=== PATIENT | female | born 1960 | race Caucasian/White ===

== ENCOUNTER 2024-05-04 14:35 | Inpatient (IN) | payer OTHER ==
[~2024-05-04] VITALS: Ht 157.5 cm; Wt 58.3 kg
[~2024-05-04 14:35] MED LIST: GLYB-200 PO; LEVO750T2 PO; METF-1274 PO
[2024-05-04 14:46] VITALS: BP 139/54; PULSE 99; RESP 20; TEMP 100.3; O2SAT 99
[2024-05-04 16:04] LABS: BASOPHILS # (AUTO) 0.1 K/uL (0.00-0.22); BASOPHILS % (AUTO) 0.5 % (0.0-2.0); EOSINOPHILS % (AUTO) 0.2 % (0.0-4.0); HEMATOCRIT 36.1 % (36-48); HEMOGLOBIN 11.9 g/dL (12.0-16.0); LYMPHOCYTES # (AUTO) 1.3 K/uL (2.5-16.5); LYMPHOCYTES % (AUTO) 8.4 % (20.5-51.1); MEAN CORPUSCULAR HEMOGLOBIN 29 pg (27-31); MEAN CORPUSCULAR HGB CONC 33 g/dL (33-37); MEAN CORPUSCULAR VOLUME 88.6 fL (80-94); MONOCYTES # (AUTO) 0.9 K/uL (0.8-1.0); NEUTROPHILS # (AUTO) 13.5 K/uL (1.8-7.7); NEUTROPHILS % (AUTO) 84.9 % (42.2-75.2); PLATELET COUNT (AUTO) 276 K/uL (140-450); RED BLOOD CELL COUNT(AUTO) 4.08 MIL/uL (4.20-5.40); RED CELL DISTRIBUTION WIDTH 13.4 % (11.6-13.7); WHITE BLOOD COUNT (AUTO) 15.9 K/uL (4.8-10.8)
[2024-05-04 16:15] LABS: ANION GAP 13.6 (8-16); CALCIUM 9.4 mg/dL (8.5-10.1); CREATININE 0.9 mg/dL (0.6-1.3); POTASSIUM 3.6 mmol/L (3.5-5.1)
[2024-05-04 16:24] LABS: LACTIC ACID 1.2 mmol/L (0.4-2.0)
[2024-05-04] MEDS ORDERED: VANCOMYCIN PER PHARMACY MC PRN (17:05)
[2024-05-04] MEDS ORDERED: DEXTROSE 50% 50 ML SYR IVP PRN (17:05)
[2024-05-04] MEDS ORDERED: PIPERACILLIN/TAZOBACTAM 3.375 GM VIAL IV ONE (17:09)
[2024-05-04] MEDS ORDERED: VANCOMYCIN 1,000 MG VIAL ONE (17:09)
[2024-05-04] MEDS: PIPERACILLIN/TAZOBACTAM 3.375 GM in DEXTROSE 5% 50 ML IV ONE (17:23)
[2024-05-04] MEDS: KETOROLAC 30 MG/ML VIAL IVP ONE (17:25)
[2024-05-04] MEDS: VANCOMYCIN 1,000 MG in DEXTROSE 5% 250 ML IV ONE (17:42)
[2024-05-04 19:56] VITALS: PULSE 78; RESP 19; O2SAT 100
[2024-05-04 20:00] VITALS: BP 142/59; PULSE 78; RESP 18; TEMP 97.1; O2SAT 100
[2024-05-04] MEDS: BLOOD GLUCOSE MONITORING 1 DEV DEV FS SCH (21:15)
[2024-05-04] MEDS: INSULIN LISPRO SLIDING SCALE 100 UNITS/ML VIAL SUBQ PRN (21:19)
[2024-05-05 04:00] VITALS: BP 116/48; PULSE 87; RESP 18; TEMP 98.9; O2SAT 98
[2024-05-05] MEDS: PIPERACILLIN/TAZOBACTAM 3.375 GM VIAL IV ONE (05:23)
[2024-05-05] MEDS: PIPERACILLIN/TAZOBACTAM 3.375 GM in DEXTROSE 5% 50 ML IV SCH (06:36)
[2024-05-05 07:14] LABS: BASOPHILS % (AUTO) 0.3 % (0.0-2.0); EOSINOPHILS % (AUTO) 0.3 % (0.0-4.0); HEMATOCRIT 32.5 % (36-48); HEMOGLOBIN 10.9 g/dL (12.0-16.0); LYMPHOCYTES # (AUTO) 1.3 K/uL (2.5-16.5); LYMPHOCYTES % (AUTO) 11.8 % (20.5-51.1); MEAN CORPUSCULAR HEMOGLOBIN 30 pg (27-31); MEAN CORPUSCULAR HGB CONC 34 g/dL (33-37); MEAN CORPUSCULAR VOLUME 88.2 fL (80-94); MONOCYTES % (AUTO) 8.7 % (1.7-9.3); NEUTROPHILS # (AUTO) 8.9 K/uL (1.8-7.7); NEUTROPHILS % (AUTO) 78.9 % (42.2-75.2); PLATELET COUNT (AUTO) 237 K/uL (140-450); RED BLOOD CELL COUNT(AUTO) 3.68 MIL/uL (4.20-5.40); RED CELL DISTRIBUTION WIDTH 13.1 % (11.6-13.7); WHITE BLOOD COUNT (AUTO) 11.3 K/uL (4.8-10.8)
[2024-05-05 08:00] VITALS: BP 116/56; PULSE 78; PULSE 86; RESP 18; RESP 19; TEMP 97.7; O2SAT 100
[2024-05-05 08:10] LABS: ALBUMIN 2.7 g/dL (3.4-5.0); CALCIUM 8.2 mg/dL (8.5-10.1); CARBON DIOXIDE 25.7 mmol/L (21-32); CREATININE 0.9 mg/dL (0.6-1.3); MAGNESIUM 1.6 mg/dL (1.8-2.4); POTASSIUM 3.7 mmol/L (3.5-5.1); TOTAL BILIRUBIN 0.9 mg/dL (0.0-1.0); TOTAL PROTEIN, SERUM 6.9 g/dL (6.4-8.2)
[2024-05-05] MEDS: glyBURIDE 5 MG TAB PO SCH (09:46)
[2024-05-05] MEDS: MEDS-TO-BEDS MC SCH (09:46)
[2024-05-05] MEDS: ASPIRIN 81 MG TAB.CHEW PO SCH (09:46)
[2024-05-05] MEDS: MAGNESIUM OXIDE 400 MG TAB PO PRN (09:46)
[2024-05-05] MEDS: ENOXAPARIN 40 MG/0.4 ML SYR SUBQ SCH (09:48)
[2024-05-05] MEDS: GAUZE TP SCH (13:00)
[2024-05-05 16:00] VITALS: BP 131/53; PULSE 93; RESP 18; TEMP 98.9; O2SAT 98
[2024-05-05] MEDS: ACETAMINOPHEN 325 MG TAB PO PRN (18:34)
[2024-05-05] MEDS: VANCOMYCIN 1,000 MG in DEXTROSE 5% 250 ML IV SCH (18:35)
[2024-05-05] MEDS: HYDROcodone/APAP 5/325 MG 1 TAB TAB PO PRN (19:38)
[2024-05-05 20:00] VITALS: BP 121/58; PULSE 71; PULSE 91; RESP 18; TEMP 97.5; O2SAT 94; O2SAT 98
[2024-05-06 04:00] VITALS: BP 112/48; PULSE 65; RESP 18; TEMP 96.8; O2SAT 98
[2024-05-06 06:49] LABS: BASOPHILS % (AUTO) 0.3 % (0.0-2.0); EOSINOPHILS # (AUTO) 0.1 K/uL (0-0.4); EOSINOPHILS % (AUTO) 1.3 % (0.0-4.0); HEMATOCRIT 33.3 % (36-48); HEMOGLOBIN 11.1 g/dL (12.0-16.0); LYMPHOCYTES # (AUTO) 1.6 K/uL (2.5-16.5); LYMPHOCYTES % (AUTO) 17.7 % (20.5-51.1); MEAN CORPUSCULAR HEMOGLOBIN 30 pg (27-31); MEAN CORPUSCULAR HGB CONC 34 g/dL (33-37); MEAN CORPUSCULAR VOLUME 88.8 fL (80-94); MONOCYTES # (AUTO) 0.9 K/uL (0.8-1.0); MONOCYTES % (AUTO) 9.3 % (1.7-9.3); NEUTROPHILS # (AUTO) 6.5 K/uL (1.8-7.7); NEUTROPHILS % (AUTO) 71.4 % (42.2-75.2); PLATELET COUNT (AUTO) 258 K/uL (140-450); RED BLOOD CELL COUNT(AUTO) 3.75 MIL/uL (4.20-5.40); RED CELL DISTRIBUTION WIDTH 13.2 % (11.6-13.7); WHITE BLOOD COUNT (AUTO) 9.1 K/uL (4.8-10.8)
[2024-05-06 07:22] LABS: ANION GAP 10.4 (8-16); CALCIUM 8.2 mg/dL (8.5-10.1); CARBON DIOXIDE 27.5 mmol/L (21-32); POTASSIUM 3.9 mmol/L (3.5-5.1)
[2024-05-06 08:00] VITALS: BP 115/49; PULSE 74; PULSE 89; RESP 18; TEMP 98.3; O2SAT 97; O2SAT 99
[2024-05-06 16:00] VITALS: BP 120/53; PULSE 84; RESP 18; TEMP 99; O2SAT 98
[2024-05-06 20:00] VITALS: BP_SYST 116; BP_SYST 120; BP_DIAS 53; BP_DIAS 60; PULSE 78; PULSE 84; RESP 16; RESP 18; TEMP 98.7; O2SAT 98
[2024-05-07 04:00] VITALS: BP 113/67; PULSE 82; RESP 16; TEMP 98.7; O2SAT 97
[2024-05-07 06:47] LABS: BASOPHILS % (AUTO) 0.2 % (0.0-2.0); EOSINOPHILS # (AUTO) 0.1 K/uL (0-0.4); EOSINOPHILS % (AUTO) 0.5 % (0.0-4.0); HEMOGLOBIN 10.5 g/dL (12.0-16.0); LYMPHOCYTES % (AUTO) 10.3 % (20.5-51.1); MEAN CORPUSCULAR HEMOGLOBIN 30 pg (27-31); MEAN CORPUSCULAR HGB CONC 34 g/dL (33-37); MEAN CORPUSCULAR VOLUME 87.9 fL (80-94); MONOCYTES # (AUTO) 0.8 K/uL (0.8-1.0); MONOCYTES % (AUTO) 8.2 % (1.7-9.3); NEUTROPHILS # (AUTO) 7.6 K/uL (1.8-7.7); NEUTROPHILS % (AUTO) 80.8 % (42.2-75.2); PLATELET COUNT (AUTO) 264 K/uL (140-450); RED BLOOD CELL COUNT(AUTO) 3.52 MIL/uL (4.20-5.40); RED CELL DISTRIBUTION WIDTH 13.3 % (11.6-13.7); WHITE BLOOD COUNT (AUTO) 9.4 K/uL (4.8-10.8)
[2024-05-07 07:07] LABS: CALCIUM 8.2 mg/dL (8.5-10.1); CARBON DIOXIDE 25.6 mmol/L (21-32); CREATININE 0.9 mg/dL (0.6-1.3); POTASSIUM 3.6 mmol/L (3.5-5.1)
[2024-05-07 08:00] VITALS: PULSE 78; RESP 16; O2SAT 98
[2024-05-07] MEDS: VANCOMYCIN HCL 750 MG in DEXTROSE 5% 250 ML IV SCH (12:30)
[2024-05-07 16:00] VITALS: BP 115/62; PULSE 89; RESP 18; TEMP 98.6; O2SAT 99
[2024-05-07 20:00] VITALS: BP 121/50; PULSE 16; PULSE 86; RESP 16; RESP 18; TEMP 97.3; O2SAT 97
[2024-05-07] MEDS: MORPHINE SULFATE 2 MG/ML SYR IVP PRN (20:36)
[2024-05-07] MEDS: ONDANSETRON 4 MG/2 ML VIAL IVP PRN (21:38)
[2024-05-08 07:26] LABS: BASOPHILS % (AUTO) 0.6 % (0.0-2.0); EOSINOPHILS # (AUTO) 0.1 K/uL (0-0.4); EOSINOPHILS % (AUTO) 1.2 % (0.0-4.0); HEMOGLOBIN 10.4 g/dL (12.0-16.0); LYMPHOCYTES # (AUTO) 1.4 K/uL (2.5-16.5); LYMPHOCYTES % (AUTO) 17.1 % (20.5-51.1); MEAN CORPUSCULAR HEMOGLOBIN 30 pg (27-31); MEAN CORPUSCULAR HGB CONC 34 g/dL (33-37); MEAN CORPUSCULAR VOLUME 88.1 fL (80-94); MONOCYTES # (AUTO) 0.9 K/uL (0.8-1.0); MONOCYTES % (AUTO) 10.2 % (1.7-9.3); NEUTROPHILS # (AUTO) 5.9 K/uL (1.8-7.7); NEUTROPHILS % (AUTO) 70.9 % (42.2-75.2); PLATELET COUNT (AUTO) 265 K/uL (140-450); RED BLOOD CELL COUNT(AUTO) 3.52 MIL/uL (4.20-5.40); WHITE BLOOD COUNT (AUTO) 8.3 K/uL (4.8-10.8)
[2024-05-08 07:58] LABS: ANION GAP 12.8 (8-16); CALCIUM 8.2 mg/dL (8.5-10.1); CARBON DIOXIDE 28.2 mmol/L (21-32)
[2024-05-08 08:00] VITALS: BP 134/53; PULSE 75; RESP 18; TEMP 97.5; O2SAT 96
[2024-05-08] MEDS ORDERED: MEPERIDINE 25 MG/ML SYR IVP PRN (11:50)
[2024-05-08] MEDS ORDERED: BLOOD GLUCOSE MONITORING 1 DEV DEV FS SCH (11:50)
[2024-05-08] MEDS ORDERED: HYDROmorphone 1 MG/ML AMP IVP PRN (11:50)
[2024-05-08] MEDS: LACTATED RINGERS 1,000 ML IV SCH (11:50)
[2024-05-08] MEDS ORDERED: ACETAMINOPHEN 100 ML IV SCH (11:50)
[2024-05-08] MEDS ORDERED: ONDANSETRON 4 MG/2 ML VIAL IVP PRN (11:50)
[2024-05-08] MEDS: METOCLOPRAMIDE 10 MG/2 ML INJ VIAL ONE (12:20)
[2024-05-08] MEDS: DEXAMETHASONE 4 MG/ML VIAL ONE (12:20)
[2024-05-08] MEDS: ONDANSETRON 4 MG/2 ML VIAL ONE (12:20)
[2024-05-08] MEDS ORDERED: SEVOFLURANE 250 ML BTL INH ONE (12:32)
[2024-05-08] MEDS: BUPIVACAINE-MPF 0.25% 30 ML VIAL INJ ONE (12:33)
[2024-05-08] MEDS: LIDOCAINE/EPI 1% 1:100000 20 ML VIAL INJ ONE (12:33)
[2024-05-08] MEDS: LIDOCAINE 1% 500 MG/50 ML VIAL ONE (12:33)
[2024-05-08] MEDS: fentaNYL citrate 0.05 MG/ML VIAL ONE (13:07)
[2024-05-08] MEDS: MIDAZOLAM 2 MG/2 ML VIAL ONE (13:07)
[2024-05-08] MEDS: PROPOFOL 200 MG/20 ML VIAL IV ONE (13:07)
[2024-05-08] MEDS: ROCURONIUM 50 MG/5 ML VIAL IV ONE (13:08)
[2024-05-08] MEDS: SUCCINYLCHOLINE CHLORIDE 200 MG/10 ML VIAL IVP ONE (13:08)
[2024-05-08] MEDS: ALBUTEROL HFA MDI 90 MCG/ACTUATION 8 GM INH ONE (14:09)
[2024-05-08] MEDS: SUGAMMADEX SODIUM 200 MG/2 ML VIAL IV ONE (14:09)
[2024-05-08 16:00] VITALS: BP 154/70; PULSE 77; RESP 18; TEMP 96.8; O2SAT 95
[2024-05-08] MEDS: VANCOMYCIN 750 MG in DEXTROSE 5% 250 ML IV SCH (17:30)
[2024-05-08 20:00] VITALS: BP 115/61; PULSE 82; RESP 16; TEMP 97.6; O2SAT 95
[2024-05-09 04:00] VITALS: BP 120/67; PULSE 86; RESP 18; TEMP 97.8; O2SAT 95
[2024-05-09 07:12] LABS: BASOPHILS % (AUTO) 0.2 % (0.0-2.0); HEMATOCRIT 31.1 % (36-48); HEMOGLOBIN 10.4 g/dL (12.0-16.0); LYMPHOCYTES # (AUTO) 1.2 K/uL (2.5-16.5); LYMPHOCYTES % (AUTO) 9.8 % (20.5-51.1); MEAN CORPUSCULAR HEMOGLOBIN 30 pg (27-31); MEAN CORPUSCULAR HGB CONC 33 g/dL (33-37); MEAN CORPUSCULAR VOLUME 88.6 fL (80-94); MONOCYTES # (AUTO) 0.8 K/uL (0.8-1.0); MONOCYTES % (AUTO) 6.6 % (1.7-9.3); NEUTROPHILS # (AUTO) 9.9 K/uL (1.8-7.7); NEUTROPHILS % (AUTO) 83.4 % (42.2-75.2); PLATELET COUNT (AUTO) 282 K/uL (140-450); RED BLOOD CELL COUNT(AUTO) 3.51 MIL/uL (4.20-5.40); RED CELL DISTRIBUTION WIDTH 12.8 % (11.6-13.7); WHITE BLOOD COUNT (AUTO) 11.9 K/uL (4.8-10.8)
[2024-05-09 07:30] LABS: CALCIUM 8.3 mg/dL (8.5-10.1); CARBON DIOXIDE 27.2 mmol/L (21-32); CREATININE 0.9 mg/dL (0.6-1.3); POTASSIUM 4.2 mmol/L (3.5-5.1)
[2024-05-09 08:00] VITALS: BP 145/60; PULSE 67; RESP 18; TEMP 96.4; O2SAT 99
[2024-05-09] MEDS ORDERED: VANCOMYCIN PER PHARMACY MC PRN (09:10)
[2024-05-09 09:42] VITALS: PULSE 78; RESP 19; O2SAT 99
[2024-05-09 17:10] VITALS: BP 138/63; PULSE 71; RESP 19; TEMP 97; O2SAT 98
[2024-05-09 20:00] VITALS: BP 129/58; PULSE 64; RESP 18; TEMP 97.5; O2SAT 97
[2024-05-10] MEDS: PIPERACILLIN/TAZOBACTAM 3.375 GM in DEXTROSE 5% 50 ML IV SCH (00:41)
[2024-05-10 07:08] LABS: BASOPHILS # (AUTO) 0.1 K/uL (0.00-0.22); BASOPHILS % (AUTO) 0.7 % (0.0-2.0); EOSINOPHILS # (AUTO) 0.3 K/uL (0-0.4); EOSINOPHILS % (AUTO) 3.2 % (0.0-4.0); HEMATOCRIT 29.5 % (36-48); HEMOGLOBIN 9.9 g/dL (12.0-16.0); LYMPHOCYTES # (AUTO) 2.4 K/uL (2.5-16.5); LYMPHOCYTES % (AUTO) 30.2 % (20.5-51.1); MEAN CORPUSCULAR HEMOGLOBIN 30 pg (27-31); MEAN CORPUSCULAR HGB CONC 34 g/dL (33-37); MEAN CORPUSCULAR VOLUME 88.8 fL (80-94); MONOCYTES # (AUTO) 0.6 K/uL (0.8-1.0); MONOCYTES % (AUTO) 7.7 % (1.7-9.3); NEUTROPHILS # (AUTO) 4.6 K/uL (1.8-7.7); NEUTROPHILS % (AUTO) 58.2 % (42.2-75.2); PLATELET COUNT (AUTO) 293 K/uL (140-450); RED BLOOD CELL COUNT(AUTO) 3.32 MIL/uL (4.20-5.40); RED CELL DISTRIBUTION WIDTH 13.2 % (11.6-13.7); WHITE BLOOD COUNT (AUTO) 7.9 K/uL (4.8-10.8)
[2024-05-10 07:25] LABS: CALCIUM 8.4 mg/dL (8.5-10.1); CARBON DIOXIDE 28.5 mmol/L (21-32); POTASSIUM 3.5 mmol/L (3.5-5.1)
[2024-05-10 08:00] VITALS: BP 126/61; PULSE 64; PULSE 68; RESP 18; TEMP 96.7; O2SAT 97
[2024-05-10 16:00] VITALS: BP 103/61; PULSE 65; RESP 18; TEMP 97.7; O2SAT 96
[2024-05-10 22:00] VITALS: PULSE 72; RESP 18; O2SAT 97
[2024-05-11 04:00] VITALS: BP 111/57; PULSE 76; RESP 18; TEMP 97.7; O2SAT 96
[2024-05-11 06:41] LABS: BASOPHILS % (AUTO) 0.6 % (0.0-2.0); EOSINOPHILS # (AUTO) 0.2 K/uL (0-0.4); HEMATOCRIT 31.8 % (36-48); HEMOGLOBIN 10.6 g/dL (12.0-16.0); LYMPHOCYTES # (AUTO) 1.4 K/uL (2.5-16.5); LYMPHOCYTES % (AUTO) 19.9 % (20.5-51.1); MEAN CORPUSCULAR HEMOGLOBIN 29 pg (27-31); MEAN CORPUSCULAR HGB CONC 33 g/dL (33-37); MEAN CORPUSCULAR VOLUME 87.3 fL (80-94); MONOCYTES # (AUTO) 0.5 K/uL (0.8-1.0); MONOCYTES % (AUTO) 7.7 % (1.7-9.3); NEUTROPHILS # (AUTO) 4.7 K/uL (1.8-7.7); NEUTROPHILS % (AUTO) 68.8 % (42.2-75.2); PLATELET COUNT (AUTO) 311 K/uL (140-450); RED BLOOD CELL COUNT(AUTO) 3.65 MIL/uL (4.20-5.40); WHITE BLOOD COUNT (AUTO) 6.9 K/uL (4.8-10.8)
[2024-05-11 07:03] LABS: ANION GAP 11.7 (8-16); CALCIUM 8.3 mg/dL (8.5-10.1); CARBON DIOXIDE 28.1 mmol/L (21-32); POTASSIUM 3.8 mmol/L (3.5-5.1)
[2024-05-11 08:00] VITALS: PULSE 67; RESP 16; O2SAT 96
[2024-05-11] MEDS: VANCOMYCIN 1,000 MG in DEXTROSE 5% 250 ML IV SCH (16:26)
[2024-05-11 20:00] VITALS: BP 125/67; PULSE 75; RESP 18; TEMP 97.5; O2SAT 98
[2024-05-12 04:00] VITALS: BP 117/53; PULSE 70; RESP 18; TEMP 97.3; O2SAT 95
[2024-05-12 06:17] LABS: BASOPHILS % (AUTO) 0.8 % (0.0-2.0); EOSINOPHILS # (AUTO) 0.2 K/uL (0-0.4); EOSINOPHILS % (AUTO) 4.7 % (0.0-4.0); HEMATOCRIT 31.8 % (36-48); HEMOGLOBIN 10.8 g/dL (12.0-16.0); LYMPHOCYTES # (AUTO) 1.5 K/uL (2.5-16.5); LYMPHOCYTES % (AUTO) 27.5 % (20.5-51.1); MEAN CORPUSCULAR HEMOGLOBIN 30 pg (27-31); MEAN CORPUSCULAR HGB CONC 34 g/dL (33-37); MEAN CORPUSCULAR VOLUME 87.5 fL (80-94); MONOCYTES # (AUTO) 0.6 K/uL (0.8-1.0); PLATELET COUNT (AUTO) 322 K/uL (140-450); RED BLOOD CELL COUNT(AUTO) 3.64 MIL/uL (4.20-5.40); RED CELL DISTRIBUTION WIDTH 13.1 % (11.6-13.7); WHITE BLOOD COUNT (AUTO) 5.3 K/uL (4.8-10.8)
[2024-05-12 06:39] LABS: ANION GAP 9.3 (8-16); CALCIUM 8.6 mg/dL (8.5-10.1); CARBON DIOXIDE 31.4 mmol/L (21-32); POTASSIUM 3.7 mmol/L (3.5-5.1)
[2024-05-12 08:00] VITALS: PULSE 74; RESP 18; O2SAT 97
[2024-05-12] MEDS ORDERED: LINE600T10 PO (13:25)
[2024-05-12 15:42] VITALS: BP 107/50
== END 2024-05-12 17:27 | disposition home health service (06) | DRG 710 ==
LOC: MED 15:01 → MMU 17:08 → MTU 19:00
PROVIDERS: ADMIT Internal Medicine; ATTEND Internal Medicine
PROC: 0SBP0ZZ Excision of Right Toe Phalangeal Joint, Open Approach (ICD-10-PCS; principal; 2024-05-08 11:15)
PROC: 02HV33Z Insertion of Infusion Device into Superior Vena Cava, Percutaneous Approach (ICD-10-PCS; 2024-05-10)
PROC: B548ZZA Ultrasonography of Superior Vena Cava, Guidance (ICD-10-PCS; 2024-05-10)
DX: A41.9 Sepsis, unspecified organism (principal); E43 Unspecified severe protein-calorie malnutrition; E11.40 Type 2 diabetes mellitus with diabetic neuropathy, unspecified; L03.115 Cellulitis of right lower limb; S91.331A Puncture wound without foreign body, right foot, initial encounter; E11.621 Type 2 diabetes mellitus with foot ulcer; E11.69 Type 2 diabetes mellitus with other specified complication; E11.65 Type 2 diabetes mellitus with hyperglycemia; M86.8X7 Other osteomyelitis, ankle and foot; X58.XXXA Exposure to other specified factors, initial encounter; Y92.89 Other specified places as the place of occurrence of the external cause; Y93.9 Activity, unspecified; Y99.8 Other external cause status; W45.0XXA Nail entering through skin, initial encounter; Z68.23 Body mass index [BMI] 23.0-23.9, adult
CPT/HCPCS: 36415; 71045; 73630; 80048; 80053; 80202; 82948; 83036; 83605; 83735; 85025; 85651; 86140; 87040; 87070; 87075; 87081; 87186; 87205; 88304; 88311; 96365; 96368; 96375; 97116; 97163-GP; 97530; 99285; J0330; J1100; J1650; J1815; J1885; J2001; J2250; J2270; J2405; J2543; J2704; J2765; J3010; J3370; J3490; J3535; J7060